=== PATIENT | female | born 1990 | race Caucasian/White ===

== ENCOUNTER 2018-08-15 14:45 | Inpatient (IN) | payer MEDICAID, OTHER ==
[~2018-08-15] VITALS: Ht 165.1 cm; Wt 75.0 kg
[2018-08-15 15:01] VITALS: Ht 165.1 cm; Wt 75.0 kg
[2018-08-15 15:02] VITALS: BP 121/81; PULSE 90
[2018-08-15] MEDS ORDERED: PNV11TAB PO (15:03)
[2018-08-15] MEDS ORDERED: AMPICILLIN 2 GM/NS (PMX) 100 ML IV ONE (15:30)
[2018-08-15] MEDS ORDERED: MISOPROSTOL 200 MCG TAB PR PRN (15:30)
[2018-08-15] MEDS ORDERED: OXYTOCIN 30 UNITS/LR 500 ML IV PRN (15:30)
[2018-08-15] MEDS ORDERED: CARBOPROST 250 MCG INJ IM PRN (15:30)
[2018-08-15] MEDS ORDERED: OXYTOCIN 30 UNITS/LR 500 ML IV SCH ×2 (15:30)
[2018-08-15] MEDS ORDERED: METHYLERGONOVINE 0.2 MG INJ IM PRN (15:30)
[2018-08-15] MEDS ORDERED: LIDOCAINE 1% (MPF) 30 ML INJ INJ PRN (15:30)
[2018-08-15] MEDS ORDERED: BUTORPHANOL 2 MG INJ IV PRN ×2 (15:30)
[2018-08-15] MEDS: LACTATED RINGER'S 1,000 ML IV SCH ×2 (16:06→22:58)
--- NOTE | 2018-08-15 16:36 | HP ---
Date/Time of Note Date/Time of Note DATE: 08/15/18 TIME: 16:35 OB - History Hx of Present Free Text/Dictation Patient is 27-year-old 2 para 1 at 40 weeks of gestation with estimated date of delivery August 15, 2018 Patient presents in active labor with regular contractions She denies any vaginal bleeding or leaking fluid Patient reports positive movement GBS status is positive Estimated Due Date: August 15, 2018 : 2 Para: 1 Care: Good Care Past Family/Social History * Past Medical, Surgical, Family and Obstetric Histories reviewed from chart. OB Admission Exam Vital Signs Vital Signs Vital Signs Date Temp Pulse Resp B/P (MAP) Pulse Ox O2 O2 Flow FiO2 Time Delivery Rate 08/15/18 97.8 90 121/81 15:02 (94) Physical Exam HEENT: WNL Heart: Rhythm Normal Lungs: Clear, Equal Abdomen: WNL Extremities: Normal Reflexes: Normal Cervical Dilatation: 5cm Effacement: 75% Station: -2 Membranes: Intact Heart Rate: 140's Accelerations: Accelerations Present Decelerations: No Decelerations Varibility: Moderate Contractions on Admission: < 5 Minutes Apart Intensity: Moderate Last 72 hours Lab Results CBC & BMP 08/15/18 15:40 PROCEDURE: US OB. CLINICAL INDICATION: Labor TECHNIQUE: Transabdominal obstetrical sonographic evaluation was performed. COMPARISON: None available. FINDINGS: There is a single living intrauterine gestation with cephalic presentation and anterior grade II placenta. There is no evidence of placenta previa or abruption. heart rate of 146 beats per minute was detected during this examination. BPD = 9.3 cm, 37 weeks and 6 days HC = 33.9 cm, 38 weeks and 6 days AC = 35.9 cm, 39 weeks and 6 days FL = 7.9 cm, 40 weeks and 3 days Based on four parameters of biparietal diameter, head circumference, abdominal circumference and femoral head, estimated gestational age only based on this study is 39 weeks and 2 days +/- 2 weeks and 5 days. Estimated date of confinement based on this examination is 08/20/2018. Estimated weight is 3830 +/- 574 grams, at 68th percentile based on this examination. Cephalic index is 78%, within normal limits. IMPRESSION: 1. Single living intrauterine gestation with cephalic presentation, as detailed above. RPTAT:HAJM Alan Fierro Physician Date Time Electronically viewed and signed by Alan Fierro Physician on 08/15/2018 17:53 RM/ CC: SHIRA MARQUEZ MD [phone] OB Assessment/Plan Reason for admission: active labor Induction Method: per Pitocin Protocol Other plan: Admit to labor and delivery Antibiotics for GBS prophylaxis Pain meds as needed Copies To: CC: SHANNON RAYGOZA MD ; SHIRA MARQUEZ MD August 15, 2018 16:36
[2018-08-15] MEDS: AMPICILLIN 1 GM/NS (PMX) 50 ML IV SCH (21:30)
[2018-08-15] MEDS ORDERED: LACTATED RINGER'S 1,000 ML IV STA (22:04)
--- NOTE | 2018-08-15 22:04 | PREAC ---
Date/Time of Note Date/Time of Note DATE: 08/15/18 TIME: 22:03 Anesthesia Eval and Record Evaluation Time Pre-Procedure Interview DATE: 08/15/18 TIME: 22:03 Age 27 Sex female NPO: 8 hrs Preoperative diagnosis in labor Planned procedure Labor epidural Past Medical History Past Medical History: None Surgery & Anesthesia Issues No known issue Meds Anticoagulation: No Beta Dave within 24 hr: No Reason Beta Dave not given: Pt. not on B-Dave Reported Medications [id number] ( 19) 1 Each Tablet, 1 TAB PO DAILY, TAB 08/15/18 Current Medications Lactated Ringer's 1,000 ml @ 125 mls/hr Q8H IV Last administered on 08/15/18at 16:06; Admin Dose 125 MLS/HR; Start 08/15/18 at 15:13 Ampicillin 50 ml @ 100 mls/hr Q4H IV Last administered on 08/15/18at 21:30; Admin Dose 100 MLS/HR; Start 08/15/18 at 19:30 Butorphanol Tartrate (Stadol) 1 mg Q2H PRN IV .PAIN SCALE 1-5; Start 08/15/18 at 15:30 Butorphanol Tartrate (Stadol) 2 mg Q2H PRN IV .PAIN SCALE 6-10 Last administered on 08/15/18at 18:32; Admin Dose 2 MG; Start 08/15/18 at 15:30 Lidocaine (Xylocaine 1% (Mpf)) 30 ml ONCE PRN INJ .EPISIOTOMY; Start 08/15/18 at 15:30 Oxytocin/Lactated Ringer's 500 ml @ 500 mls/hr ONCE POST IV ; Start 08/15/18 at 15:30 Oxytocin/Lactated Ringer's 500 ml @ 125 mls/hr POST IV ; Start 08/15/18 at 15:30 Oxytocin/Lactated Ringer's 500 ml @ 0 mls/hr ONCE PRN IV .VAGINAL BLEEDING; Start 08/15/18 at 15:30 Methylergonovine Maleate (Methergine) 0.2 mg ONCE PRN IM .VAGINAL BLEEDING; Start 08/15/18 at 15:30 Carboprost Tromethamine (Hemabate) 250 mcg ONCE PRN IM .VAGINAL BLEEDING; Start 5/18/19 at 15:30 Misoprostol (Cytotec) 1,000 mcg ONCE PRN DE .VAGINAL BLEEDING; Start 08/15/18 at 15:30 Meds reviewed: Yes Allergies Coded Allergies: No Known Allergy (Unverified , 08/15/18) Allergies Reviewed: Yes Labs/Studies Labs Reviewed: Reviewed by anesthesiologist Result Diagram: 08/15/18 1540 Laboratory Tests 08/15/18 15:40 Blood Bank Test 08/15/18 15:40 Antibody Screen NEGATIVE Blood Type O POSITIVE Rh Immune Globulin Candidate NO test: Positive Pre-procedure Exam Last vitals Vital Signs Date Temp Pulse Resp B/P (MAP) Pulse Ox O2 O2 Flow FiO2 Time Delivery Rate 08/15/18 97.8 90 121/81 15:02 (94) Airway: Adequate mouth opening Mallampati: Mallampati II Teeth: Normal Lung: Normal Heart: Normal ASA Physical Status ASA physical status: 2 Emergency: None Planned Anesthetic Neuraxial: Epidural Pre-operative Attestations Prior to commencing anesthesia and surgery, the patient was re-evaluated, there was verification of: *The patient's identity *The results of appropriate recent lab work and preoperative vital signs *The above evaluation not changing prior to induction *Anesthetic plan, risk benefits, alternative and complications discussed with patient/family; questions answered; patient/family understands, accepts and wishes to proceed. EMELIA GALDAMEZ MD August 15, 2018 22:04
[2018-08-15] MEDS ORDERED: FENTAnyl 2MCG/ML-ROPIV 0.2% 100 ML ONE (22:08)
[2018-08-15] MEDS ORDERED: DIPHENHYDRAMINE 50 MG INJ IV PRN (22:30)
[2018-08-15] MEDS ORDERED: FENTAnyl 2MCG/ML-ROPIV 0.2% 100 ML BAG EPI SCH (22:30)
[2018-08-15] MEDS ORDERED: EPHEDrine 25 MG/5 ML SYG IV PRN (22:30)
[2018-08-15] MEDS ORDERED: ONDANSETRON 4 MG INJ IV PRN (22:30)
[2018-08-15] MEDS ORDERED: IBUPROFEN 600 MG TAB PO PRN (22:30)
[2018-08-15] MEDS ORDERED: NALOXONE (0.4 MG/ML) INJ IV PRN (22:30)
[2018-08-16] MEDS: AMPICILLIN 1 GM/NS (PMX) 50 ML IV SCH ×2 (01:13→04:53)
[2018-08-16] MEDS ORDERED: OXYTOCIN 30 UNITS/LR 500 ML IV SCH (02:00)
[2018-08-16] MEDS: LACTATED RINGER'S 1,000 ML IV SCH (06:11)
[2018-08-16] MEDS: LACTATED RINGER'S 1,000 ML IV* SCH ×2 (07:17→15:17)
--- NOTE | 2018-08-16 07:17 | LDN ---
Date/Time of Note Date/Time of Note DATE: 08/16/18 TIME: 07:13 Delivery Summary of a viable baby girl weighing 3205 grams or7# 1 oz, 19.25" long and with Apgars of 8/9. Weeks of Gestation 40w 1d Placenta Delivered: Spontaneously Meconium: none Episiotomy: Yes Indication for episiotomy tight perineum Perineal laceration: 0 Laceration repair: Episiotomy repared with 2-0 chromic. Anesthesia type: Epidural Estimated blood loss: 200 Sponge & Needle done & correct: Yes All needle counts correct: Yes Any foreign bodies felt in the: No (vagina) Infant Delivery Information Sex Sex: female Apgars 1 Minute: 8 5 Minute: 9 Suctioning Nose & mouth suctioned at luis daniel: Yes Delee suction performed: No Umbilical Cord Umbilical cord with: 3 Vessels Cord Blood was obtained: Yes Mother & Baby Disposition Disposition Mom & Baby to Maternity; Good: Yes Baby to NICU: No BRENDEN COUCH MD August 16, 2018 07:17
[2018-08-16] MEDS ORDERED: OXYTOCIN 30 UNITS/LR 500 ML IV PRN (07:30)
[2018-08-16] MEDS ORDERED: BENZOCAINE 20% 56 ML SPRAY TOP PRN (07:30)
[2018-08-16] MEDS ORDERED: HYDROCODONE/APAP (5/325) TAB PO PRN (07:30)
[2018-08-16] MEDS ORDERED: CARBOPROST 250 MCG INJ IM PRN (07:30)
[2018-08-16] MEDS ORDERED: MISOPROSTOL 200 MCG TAB PR PRN (07:30)
[2018-08-16] MEDS ORDERED: METHYLERGONOVINE 0.2 MG INJ IM PRN (07:30)
[2018-08-16] MEDS ORDERED: WITCH HAZEL/GLYCERIN PAD PR PRN (07:30)
[2018-08-16] MEDS ORDERED: LANOLIN HPA 1 PKT TOP PRN (07:30)
[2018-08-16 08:50] VITALS: BP 112/74; PULSE 64; RESP 18
[2018-08-16 09:30] VITALS: BP 128/85; PULSE 64; RESP 18
[2018-08-16] MEDS: IBUPROFEN 600 MG TAB PO SCH ×3 (11:35→23:43)
[2018-08-16] MEDS: OXYTOCIN 30 UNITS/LR 500 ML IV SCH ×2 (15:22→17:17)
[2018-08-16 15:46] VITALS: BP 117/74; PULSE 82; RESP 18
[2018-08-16 19:30] VITALS: BP 100/56; PULSE 76; RESP 17
[2018-08-17 03:39] VITALS: BP 97/52; PULSE 91; RESP 17
[2018-08-17] MEDS: IBUPROFEN 600 MG TAB PO SCH ×4 (05:47→23:38)
[2018-08-17 08:00] VITALS: BP 97/55; PULSE 68; RESP 18
--- NOTE | 2018-08-17 09:07 | PD.PPDC ---
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
--- NOTE | 2018-08-17 09:10 | DS ---
Date/Time of Note Date/Time of Note DATE: 08/17/18 TIME: 09:09 Obstetrical Discharge Record Final Diagnosis Final Diagnosis: Term delivered Vaginal Delivery Obstetrical Delivery: Spontaneous, Episiotomy, Repaired Condition on Discharge Physical Assessment Last Vitals: stable Voiding: Yes Bowel Movement: Yes Breast: Soft, non-tender, Filling Fundus: Firm Abdomen and Incision: soft nt Episiotomy: intact Calf Tenderness: No Patient Condition: Fair SHANNON RAYGOZA MD August 17, 2018 09:10
[2018-08-17 16:30] VITALS: BP 106/73; PULSE 68; RESP 16
[2018-08-17 20:05] VITALS: BP 102/63; PULSE 67; RESP 17
[2018-08-18 03:22] VITALS: BP_SYST 102; BP_SYST 109; BP_DIAS 53; BP_DIAS 63; PULSE 67; RESP 17
[2018-08-18] MEDS: IBUPROFEN 600 MG TAB PO SCH ×2 (05:32→12:09)
[2018-08-18 07:30] VITALS: BP 103/69; PULSE 76; RESP 18
[2018-08-18] MEDS ORDERED: DIPHTH/TET/ACEL PERTUSS (ADULT) 0.5 ML VIAL IM* ONE (09:00)
--- NOTE | 2018-08-19 15:26 | DELSUM ---
Delivery Summary A-C Datetime Report Generated by CPN: 08/19/2018 15:26 DELIVERY PERSONNEL Testing And Regulating Chief: Delfino Zafar MATERNAL INFORMATION Delivery Anesthesia: Epidural Medications in Delivery: oxytocin 30 units in LR Delivery QBL (ml): 281 Placenta Cultured: No Maternal Complications: None LABOR SUMMARY EDC: 08/15/2018 00:00 No. Babies in Womb: 1 Attempted: No Labor Anesthesia: Epidural LABOR INFORMATION Reason for Induction: Not Applicable Onset of Labor: 08/15/2018 13:30 Complete Dilatation: 08/16/2018 03:48 Oxytocin: Augmentation Group B Beta Strep: Positive Antibiotics # of Doses: ampicillin x4 Antibiotics Time of Last Dose: 08/16/2018 04:53 Steroids Given: None Reason Steroids Not Administered: Not Applicable MEMBRANES Membranes Rupture Method: Spontaneous Rupture of Membranes: 08/15/2018 19:24 Length of Rupture (hr): 11.32 Amniotic Fluid Color: Clear Amniotic Fluid Amount: Large Amniotic Fluid Odor: Normal STAGES OF LABOR Stage 1 hr: 14 Stage 1 min: 18 Stage 2 hr: 2 Stage 2 min: 55 Stage 3 hr: 0 Stage 3 min: 2 Total Time in Labor hr: 17 Total Time in Labor min: 15 VAGINAL DELIVERY Episiotomy: Median Laceration Extension: N/A Laceration Type: None Laceration Repair: Yes Initial Vag Sponge Count: 10 Final Vag Sponge Count: 10 Initial Vag Sharps Count: 1 Final Vag Sharps Count: 2 Sponge Count Correct: Yes; Vaginal Sweep Performed Sharps Count Correct: Yes BABY A INFORMATION Infant Delivery Date/Time: 08/16/2018 06:43 Method of Delivery: Vaginal Born in Route : No : N/A Forceps: N/A Vacuum Extraction: N/A Shoulder Dystocia : N/A SHOULDER DYSTOCIA BABY A Infant Delivery Date/Time: 08/16/2018 06:43 PRESENTATION/POSITION BABY A Presentation: Cephalic Cephalic Presentation: Vertex Vertex Position: Left Occipital Anterior Breech Presentation: N/A PLACENTA INFORMATION BABY A Placenta Delivery Time : 08/16/2018 06:45 Placenta Method of Delivery: Expressed Placenta Status: Delivered SCORES BABY A Heart Rate 1 min: >100 bpm Resp Effort 1 min: Good Cry Reflex Irritability 1 min: Cough/Sneeze/Pulls Away Muscle Tone 1 min: Active Motion Color 1 min: Blue/Pale Resuscitation Effort 1 min: Tactile Stimulation SCORE 1 MIN: 8 Heart Rate 5 min: >100 bpm Resp Effort 5 min: Good Cry Reflex Irritability 5 min: Cough/Sneeze/Pulls Away Muscle Tone 5 min: Active Motion Color 5 min: Body [place], Extremit Blue Resuscitation Effort 5 min: N/A SCORE 5 MIN: 9 INFORMATION BABY A Gestational Age at Delivery: 40.1 Gestational Status: Full Term- 39- 40.6 Weeks Outcome : Liveborn Infant Condition : Stable Infant Sex: Female IDENTIFICATION/MEDS BABY A ID Band Number: [id number] ID Band Location: Right Leg; Left Arm Sensor Applied: Yes Sensor Number: [id number] Sensor Location : Cord Clamp Vitamin K Given : Not Given Erythromycin Given: Not Given WEIGHT/LENGTH BABY A Infant Birthweight (gm): 3205 Infant Weight (lb): 7 Infant Weight (oz): 1 Length (in): 19.25 Infant Length (cm): 48.90 CORD INFORMATION BABY A No. Cord Vessels: 3 Nuchal Cord : N/A Cord Blood Taken: Yes Banking/Donate Info: n/a Infant Suction: Mouth; Nose ASSESSMENT BABY A Complications: Decreased Variability Physical Findings at Delivery: Molding of the Head Infant Respirations: Appears Normal Musical Engineer/ALS Called : No Infant Care By: adolfo QUINTEROS Transferred To: Remains with Mother
== END 2018-08-18 15:26 | disposition home or self-care (01) | DRG 807 ==
LOC: L-D 14:45 → OBT 14:45 → L-D 15:10 → OBT 15:10 → PP1 08-16 08:58
PROVIDERS: ADMIT Obstetrics & Gynecology; ATTEND Obstetrics & Gynecology
PROC: 10E0XZZ Delivery of Products of Conception, External Approach (ICD-10-PCS; principal; 2018-08-16)
PROC: 0W8NXZZ Division of Female Perineum, External Approach (ICD-10-PCS; 2018-08-16)
DX: O48.0 Post-term pregnancy (principal); Z37.0 Single live birth; Z3A.40 40 weeks gestation of pregnancy
CPT/HCPCS: 62322; 76815; 85025; 85610; 85730; 86592; 86850; 86900; 86901; 87340; G0463; J0290; J0595; J2405; J2590; J3010; J7120